=== PATIENT | male | born 1975 | race Hispanic/Latino ===

== ENCOUNTER 2021-12-17 10:37 | Emergency (ER) | payer SELFPAY ==
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
--- NOTE | 2021-12-17 13:11 | XRay Report ---
CHEST 2 VIEWS INDICATION / CLINICAL INFORMATION: cough shortness of breath rhonchi on auscultation. COMPARISON: None available. FINDINGS: SUPPORT DEVICES: None. HEART / MEDIASTINUM: Heart is mildly enlarged. LUNGS / PLEURA: Mild bibasilar interstitial edema with Hortencia B-lines. No pleural effusion. No pneumo thorax. ADDITIONAL FINDINGS: No significant additional findings. IMPRESSION: 1. Mild cardiomegaly with mild bibasilar pulmonary edema. Signer Name: Aarti Madison MD Signed: 12/17/2021 1:06 PM Workstation Name: [id number]
--- NOTE | 2021-12-18 09:54 | Electrocardiograph Report ---
[facility] Test Date: 2021-12-17 Test Time: 10:59:54 Pat Name: ANA SANCHEZ Department: Room: Gender: M Bar Tender: CAM : 1975 Requested By: ED DOC Order Number: [id number] Reading MD: Ld Nixon Measurements Intervals [place] Rate: 94 P: 74 ID: [id number] QRS: 44 QRSD: 88 T: 126 QT: 383 QTc: 480 Interpretive Statements Sinus rhythm Biatrial enlargement Probable left ventricular hypertrophy Nonspecific T abnrm, anterolateral leads No previous ECG available for comparison Electronically Signed On 12-18-2021 9:53:56 EST by Ld Nixon
== END 2021-12-17 20:51 | disposition home or self-care (01) ==
LOC: ED 10:37
DX: J18.9 Pneumonia, unspecified organism (principal); F17.200 Nicotine dependence, unspecified, uncomplicated; F12.90 Cannabis use, unspecified, uncomplicated; F10.20 Alcohol dependence, uncomplicated; I10 Essential (primary) hypertension
CPT/HCPCS: 71046; 93005; 93010; 99283